=== PATIENT | female | born 1945 | race Caucasian/White ===

== ENCOUNTER 2016-06-09 15:26 | Emergency (ER) | payer MEDICARE, BC ==
[~2016-06-09] VITALS: Ht 167.6 cm; Wt 59.0 kg
[~2016-06-09 15:26] MED LIST: ASPI81TA2 PO; HYDR-3326 PO
[2016-06-09] MEDS ORDERED: KETOROLAC TROMETHAMINE INJ 30 MG/ML VIAL ONE (15:50)
--- NOTE | 2016-06-09 15:58 | NUR ---
PT REC'D TO ER C/O PAIN 10/17 ON AND OFF ONE MONTH . AWAITING EVALUATION BY ER PROVIDER.
--- NOTE | 2016-06-09 15:59 | NUR ---
PT GIVEN TORADOL 30 MG IM RT BUTTOCKS AWAITING EVALUATION BY ER PROVIDER.
[2016-06-09] MEDS ORDERED: KETOROLAC TROMETHAMINE INJ 60 MG/2 ML VIAL IM ONE (16:00)
[2016-06-09 16:18] LABS: BASOPHILS # (AUTO) 0.1 /CMM (0.0-0.2); BASOPHILS % (AUTO) 0.8 % (0.0-2.0); EOSINOPHILS # (AUTO) 0.1 /CMM (0.0-0.7); EOSINOPHILS % (AUTO) 0.8 % (0.0-6.0); HEMATOCRIT 43 % (33-45); HEMOGLOBIN 14.3 g/dL (11.5-14.8); LYMPHOCYTES # (AUTO) 2.1 /CMM (0.8-4.8); LYMPHOCYTES % (AUTO) 25.6 % (20.0-44.0); MEAN CORPUSCULAR HEMOGLOBIN 32 PG (26.0-33.0); MEAN CORPUSCULAR HGB CONC 34 g/dl (31.0-36.0); MEAN CORPUSCULAR VOLUME 95 fL (82-100); MONOCYTES # (AUTO) 0.9 /CMM (0.1-1.30); MONOCYTES % (AUTO) 10.9 % (2.0-12.0); NEUTROPHILS # (AUTO) 5.1 /CMM (1.8-8.9); NEUTROPHILS % (AUTO) 61.9 % (43.0-81.0); PLATELET COUNT (AUTO) 203 /CMM (150-450); RDW COEFFICIENT OF VARIATION 13.6 (11.5-15.0); RED BLOOD CELL COUNT(AUTO) 4.49 MIL/uL (4.0-5.2); WHITE BLOOD COUNT (AUTO) 8.2 K/uL (4.3-11.0)
[2016-06-09 16:19] LABS: APPEARANCE,URINE CLEAR (CLEAR); BILIRUBIN,URINE NEGATIVE (NEGATIVE); BLOOD, URINE 2+ Ery/uL (NEGATIVE); COLOR,URINE YELLOW (YELLOW); KETONES,URINE NEGATIVE (NEGATIVE); LEUKOCYTE ESTERASE ,URINE NEGATIVE (NEGATIVE); NITRITE, URINE NEGATIVE (NEGATIVE); PH,URINE 6.5 (5.0-8.0); PROTEIN,URINE NEGATIVE (NEGATIVE); UGLUCOSE NEGATIVE (NEGATIVE); UROBILINOGEN,URINE 0.2 EU/dL (0.2)
[2016-06-09 16:23] LABS: CALCIUM, SERUM 9.4 mg/dL (8.5-10.1); CREATININE 0.7 mg/dL (0.6-1.3); POTASSIUM 3.9 mmol/L (3.5-5.1)
[2016-06-09 16:25] LABS: ADD URINE CULTURE NO; BACTERIA,URINE 1+ /HPF (None Seen); CALCIUM OXALATE CRYSTALS,UR Rare /HPF (None Seen); SQUAMOUS EPITHELIAL CELL,UR 0-2 /HPF (None Seen); WBC,URINE 0-2 /HPF (0-3)
[2016-06-09 16:30] LABS: BILIRUBIN,DIRECT 0.1 mg/dL (0.0-0.2); BILIRUBIN,TOTAL 0.4 mg/dL (0.2-1.0); TOTAL PROTEIN, SERUM 7.3 g/dL (6.4-8.2)
--- NOTE | 2016-06-09 16:30 | NUR ---
PT LABS DRAWN AND [place] TO LAB PT VERY NERVOUS
--- NOTE | 2016-06-09 17:27 | NUR ---
PT AMB TO BR VOIDED BACK TO BED . PAIN 5/10 PT STATED FEELING A LITTLE BETTER
--- NOTE | 2016-06-09 17:46 | NUR ---
PT. VERBALIZED UNDERSTANDING OF AFTERCARE INSTRUCTIONS.Patient discharged to home in stable condition. Written and verbal after care instructions given. Patient verbalizes understanding of instruction.
[2016-06-09 17:47] VITALS: BP 167/101
== END 2016-06-09 17:52 | disposition home or self-care (01) ==
LOC: ER 15:31
DX: R10.84 Generalized abdominal pain (principal); I10 Essential (primary) hypertension; Z79.82 Long term (current) use of aspirin; Z87.442 Personal history of urinary calculi; Z88.0 Allergy status to penicillin; F41.9 Anxiety disorder, unspecified; F32.9 Major depressive disorder, single episode, unspecified; F10.20 Alcohol dependence, uncomplicated
CPT/HCPCS: 36415; 80048-TC; 80076-TC; 81000-TC; 83690-TC; 85025-TC; 87086-TC; A4606; J1885; Z7610

== ENCOUNTER 2016-06-15 14:42 | Emergency (ER) | payer MEDICARE, BC ==
[~2016-06-15] VITALS: Ht 167.6 cm; Wt 59.0 kg
[2016-06-15 14:46] VITALS: BP 135/69
--- NOTE | 2016-06-15 14:50 | NUR ---
URINE SAMPLE OBTAINED, SENT.
[2016-06-15 15:05] LABS: APPEARANCE,URINE Cloudy (CLEAR); BILIRUBIN,URINE Negative (NEGATIVE); BLOOD, URINE Small Ery/uL (NEGATIVE); COLOR,URINE Yellow (YELLOW); KETONES,URINE Negative (NEGATIVE); LEUKOCYTE ESTERASE ,URINE Negative (NEGATIVE); NITRITE, URINE Negative (NEGATIVE); PROTEIN,URINE Negative (NEGATIVE); UGLUCOSE Negative (NEGATIVE); UROBILINOGEN,URINE 0.2 EU/dL (0.2)
[2016-06-15 15:28] LABS: ADD URINE CULTURE NO; BACTERIA,URINE Few /HPF (None Seen); RBC,URINE 0-2 /HPF (0-2); SQUAMOUS EPITHELIAL CELL,UR Rare /HPF (None Seen); WBC,URINE 0-2 /HPF (0-3)
[2016-06-15 15:29] LABS: URINE AMORPHOUS URATE Many /HPF (None Seen)
== END 2016-06-15 15:25 | disposition home or self-care (01) ==
LOC: ER 14:42
DX: R10.31 Right lower quadrant pain (principal); F31.9 Bipolar disorder, unspecified; F41.9 Anxiety disorder, unspecified; F32.9 Major depressive disorder, single episode, unspecified; M54.5 Low back pain; I10 Essential (primary) hypertension; G89.29 Other chronic pain; Z87.442 Personal history of urinary calculi; Z88.0 Allergy status to penicillin; Z79.82 Long term (current) use of aspirin; Z88.2 Allergy status to sulfonamides; Z88.1 Allergy status to other antibiotic agents; Z88.8 Allergy status to other drugs, medicaments and biological substances
CPT/HCPCS: 81001; 99283; A4606; 81000-TC; Z7610

== ENCOUNTER 2016-06-21 12:53 | Emergency (ER) | payer MEDICARE, BC ==
[~2016-06-21] VITALS: Ht 167.6 cm; Wt 59.0 kg
--- NOTE | 2016-06-21 13:20 | NUR ---
LAB AT BEDSIDE BLOOD SAMPLE COLLECTED SENT TO LAB
[2016-06-21] MEDS ORDERED: ACETAMINOPHEN 325 MG TABLET ONE (13:24)
[2016-06-21 13:29] LABS: BASOPHILS % (AUTO) 0.5 % (0.0-2.0); EOSINOPHILS # (AUTO) 0.1 /CMM (0.0-0.7); EOSINOPHILS % (AUTO) 1.1 % (0.0-6.0); HEMATOCRIT 40 % (33-45); HEMOGLOBIN 13.7 g/dL (11.5-14.8); LYMPHOCYTES # (AUTO) 1.9 /CMM (0.8-4.8); LYMPHOCYTES % (AUTO) 24.6 % (20.0-44.0); MEAN CORPUSCULAR HEMOGLOBIN 32 PG (26.0-33.0); MEAN CORPUSCULAR HGB CONC 34 g/dl (31.0-36.0); MEAN CORPUSCULAR VOLUME 96 fL (82-100); MONOCYTES # (AUTO) 0.7 /CMM (0.1-1.30); MONOCYTES % (AUTO) 9.4 % (2.0-12.0); NEUTROPHILS % (AUTO) 64.4 % (43.0-81.0); PLATELET COUNT (AUTO) 178 /CMM (150-450); RDW COEFFICIENT OF VARIATION 12.4 (11.5-15.0); RED BLOOD CELL COUNT(AUTO) 4.22 MIL/uL (4.0-5.2); WHITE BLOOD COUNT (AUTO) 7.7 K/uL (4.3-11.0)
[2016-06-21] MEDS ORDERED: ACETAMINOPHEN 325 MG TABLET PO ONE (13:30)
--- NOTE | 2016-06-21 13:30 | NUR ---
URINE SAMPLE COLLECTED SENT TO LAB
[2016-06-21 13:39] LABS: CALCIUM, SERUM 9.3 mg/dL (8.5-10.1); CREATININE 0.8 mg/dL (0.6-1.3); POTASSIUM 3.6 mmol/L (3.5-5.1)
[2016-06-21 13:46] LABS: ALBUMIN 3.6 g/dL (3.4-5.0); BILIRUBIN,DIRECT 0.1 mg/dL (0.0-0.2); BILIRUBIN,TOTAL 0.2 mg/dL (0.2-1.0); TOTAL PROTEIN, SERUM 6.8 g/dL (6.4-8.2)
--- NOTE | 2016-06-21 13:56 | NUR ---
ULTRASOUND AT BEDSIDE
[2016-06-21 14:01] LABS: APPEARANCE,URINE Clear (CLEAR); BILIRUBIN,URINE Negative (NEGATIVE); BLOOD, URINE Small Ery/uL (NEGATIVE); COLOR,URINE Yellow (YELLOW); KETONES,URINE Negative (NEGATIVE); LEUKOCYTE ESTERASE ,URINE Negative (NEGATIVE); NITRITE, URINE Negative (NEGATIVE); PROTEIN,URINE Negative (NEGATIVE); UGLUCOSE Negative (NEGATIVE); UROBILINOGEN,URINE 0.2 EU/dL (0.2)
[2016-06-21 14:12] LABS: ADD URINE CULTURE NO; BACTERIA,URINE Rare /HPF (None Seen); CALCIUM OXALATE CRYSTALS,UR Many /HPF (None Seen); RBC,URINE 0-3 /HPF (0-2); SQUAMOUS EPITHELIAL CELL,UR Few /HPF (None Seen); WBC,URINE 0-2 /HPF (0-3)
[2016-06-21 14:35] VITALS: BP 140/85
--- NOTE | 2016-06-21 14:35 | NUR ---
Patient discharged to home in stable condition. Written and verbal after care instructions given. Patient verbalizes understanding of instruction.
== END 2016-06-21 14:36 | disposition home or self-care (01) ==
LOC: ER 12:56
DX: E86.0 Dehydration (principal); R10.31 Right lower quadrant pain; I10 Essential (primary) hypertension; N20.0 Calculus of kidney; G89.29 Other chronic pain; F31.9 Bipolar disorder, unspecified; Z88.0 Allergy status to penicillin; Z79.82 Long term (current) use of aspirin; F32.9 Major depressive disorder, single episode, unspecified; F41.9 Anxiety disorder, unspecified; Z88.1 Allergy status to other antibiotic agents; Z88.2 Allergy status to sulfonamides; Z88.8 Allergy status to other drugs, medicaments and biological substances
CPT/HCPCS: 36415; 76700; 76705; 80048; 80076; 81001; 83690; 85025; 99285; A4606; 81000-TC; Z7610

== ENCOUNTER 2016-07-27 13:24 | Emergency (ER) | payer MEDICARE, BC ==
[~2016-07-27] VITALS: Ht 165.1 cm; Wt 74.8 kg
--- NOTE | 2016-07-27 14:10 | NUR ---
PT TO ED ROOM 08. RLQ ABD PAIN X 1 MONTH. A/A/O. VS WNL. AMBULATORY W/ STEADY GAIT. CHANGED TO GOWN. CONENCTED TO MONITOR. SIDE RAILS UP. AWAITING EVALUATION BY ER PROVIDER.
--- NOTE | 2016-07-27 14:13 | NUR ---
URINE SAMPLE COLLECTED SENT TO LAB
--- NOTE | 2016-07-27 14:20 | NUR ---
EKG IN PROGRESS
[2016-07-27 14:27] LABS: APPEARANCE,URINE Clear (CLEAR); BILIRUBIN,URINE Negative (NEGATIVE); BLOOD, URINE Moderate Ery/uL (NEGATIVE); COLOR,URINE Yellow (YELLOW); KETONES,URINE Negative (NEGATIVE); LEUKOCYTE ESTERASE ,URINE Negative (NEGATIVE); NITRITE, URINE Negative (NEGATIVE); PROTEIN,URINE Negative (NEGATIVE); UGLUCOSE Negative (NEGATIVE); UROBILINOGEN,URINE 0.2 EU/dL (0.2)
[2016-07-27 14:38] LABS: ADD URINE CULTURE NO; BACTERIA,URINE Few /HPF (None Seen); SQUAMOUS EPITHELIAL CELL,UR Few /HPF (None Seen)
[2016-07-27 14:39] LABS: CALCIUM OXALATE CRYSTALS,UR Rare /HPF (None Seen)
--- NOTE | 2016-07-27 14:48 | NUR ---
PT TAKEN TO CT VIA WC
[2016-07-27 15:16] VITALS: BP 149/69
--- NOTE | 2016-07-27 15:28 | NUR ---
Patient discharged to home in stable condition. Written and verbal after care instructions given. Patient verbalizes understanding of instruction.
== END 2016-07-27 15:29 | disposition home or self-care (01) ==
LOC: ER 13:26
DX: K59.00 Constipation, unspecified (principal); M54.5 Low back pain; G89.29 Other chronic pain; R42 Dizziness and giddiness; F31.9 Bipolar disorder, unspecified; I10 Essential (primary) hypertension; F32.9 Major depressive disorder, single episode, unspecified; F41.9 Anxiety disorder, unspecified; Z79.82 Long term (current) use of aspirin; Z87.442 Personal history of urinary calculi; Z88.0 Allergy status to penicillin; Z88.2 Allergy status to sulfonamides; Z88.1 Allergy status to other antibiotic agents; Z88.8 Allergy status to other drugs, medicaments and biological substances; Z88.6 Allergy status to analgesic agent
CPT/HCPCS: 74176; 81001; 93005; 99285; A4606; 81000-TC; Z7610

== ENCOUNTER 2020-01-23 10:31 | Emergency (ER) | payer MEDICARE, BC ==
[~2020-01-23] VITALS: Ht 167.6 cm; Wt 63.5 kg
[~2020-01-23 10:31] MED LIST changes: +ASPI-1169 PO; -ASPI81TA2 PO; -HYDR-3326 PO; +HYDR-3974 PO
--- NOTE | 2020-01-23 10:38 | NUR ---
Patient came in to the er c/o right wrist skin tear s/p tripped and fall hit wrist on a glass table. On room air, breathing evenly and unlabored. Kept comfortable, will continue to monitor accordingly.
[2020-01-23 10:41] VITALS: BP 129/81
--- NOTE | 2020-01-23 10:42 | NUR ---
Patient discharged to home in stable condition. Written and verbal after care instructions given. Patient verbalizes understanding of instruction.
--- NOTE | 2020-01-23 10:42 | NUR ---
WOUND CLEANING AND DRESSING DONE BY MANAGER TRANSIT.
--- NOTE | 2020-01-23 10:42 | NUR ---
unable to depart due to meditech problem
== END 2020-01-23 23:00 | disposition home or self-care (01) ==
LOC: ER 10:31
DX: S61.511A Laceration without foreign body of right wrist, initial encounter (principal); I10 Essential (primary) hypertension; F32.9 Major depressive disorder, single episode, unspecified; F41.9 Anxiety disorder, unspecified; G89.29 Other chronic pain; M54.5 Low back pain; Z87.442 Personal history of urinary calculi; Z88.2 Allergy status to sulfonamides; Z88.0 Allergy status to penicillin; Z88.1 Allergy status to other antibiotic agents; Z88.8 Allergy status to other drugs, medicaments and biological substances; Z79.82 Long term (current) use of aspirin; W01.110A Fall on same level from slipping, tripping and stumbling with subsequent striking against sharp glass, initial encounter; Y93.89 Activity, other specified; Y92.89 Other specified places as the place of occurrence of the external cause; Y99.8 Other external cause status